=== PATIENT | female | born 2000 | race American Indian/Alaskan Native ===

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

== ENCOUNTER 2020-09-13 06:25 | Inpatient (IN) | payer SELFPAY ==
[2020-09-13] MEDS ORDERED: Sodium Chloride 0.9% 10 ML Syringe FLUSH PRN ×2 (06:51→10:22)
[2020-09-13] MEDS ORDERED: Oxytocin/Normal Saline 30 UNIT/500 ML BAG IV SCH ×2 (08:15→10:30)
[2020-09-13] MEDS: Lactated Ringers 1,000 ML IV SCH ×2 (09:17→11:57)
[2020-09-13] MEDS ORDERED: Tranexamic Acid 1,000 MG in Sodium Chloride 0.9% 100 ML IV PRN (10:22)
[2020-09-13] MEDS ORDERED: Zolpidem 5 MG Tab PO PRN (10:22)
[2020-09-13] MEDS ORDERED: Oxytocin 10 Units/1 ML SDV IM PRN (10:22)
[2020-09-13] MEDS ORDERED: Acetaminophen 325 MG Tab PO PRN ×2 (10:22)
[2020-09-13] MEDS ORDERED: Simethicone 80 MG Tab.Chew PO PRN (10:22)
[2020-09-13] MEDS ORDERED: Carboprost Tromethamine 250 MCG/1 ML Amp IM PRN (10:22)
[2020-09-13] MEDS ORDERED: Benzocaine/Menthol 20%-0.5% Spray 56 GM Canister TOP PRN (10:22)
[2020-09-13] MEDS ORDERED: Misoprostol 400 MCG (4 X 100 MCG TAB) RECTAL PRN (10:22)
[2020-09-13] MEDS ORDERED: Lactated Ringers 1,000 ML IV SCH (10:30)
[2020-09-13] MEDS ORDERED: fentaNYL 100 MCG/2 ML SDV ONE (11:37)
[2020-09-13] MEDS ORDERED: Sodium Bicarbonate 4.2% 2.5 MEQ/5 ML SDV ONE ×2 (11:38→16:17)
[2020-09-13] MEDS ORDERED: EPINEPHrine 1 MG/1 ML Amp ONE ×2 (11:38→16:17)
--- NOTE | 2020-09-13 12:01 | PCM.SN.2 ---
- Free Text/Narrative Note: Intrathecal. Sitting position, sterile prep and drape. 1% lidocaine w bicarb for skinwheal to L2 L3 interspace. Introducer, 24 ga pencan x 1. Pos CSF, neg heme, neg parasthesia. 0.1 ml pf 1:1000 epi, 20 mcg pf sufenta, 30 mcg pf fentanyl, 0.3 ml pf NS and 6 mg of 0.75 % marcaine injected after CSF aspiration. Pt to L lateral position. Procedure time 1135 to 1205
[2020-09-13] MEDS ORDERED: ePHEDrine 50 MG/ML SDV ONE (12:05)
[2020-09-13] MEDS ORDERED: ePHEDrine 50 MG/ML SDV IVPUSH ONE (12:07)
[2020-09-13] MEDS ORDERED: Ondansetron 4 MG/2 ML SDV IVPUSH ONE (13:00)
--- NOTE | 2020-09-13 15:09 | PCM.DEL ---
L & D Note - General Info Date of Service: 09/13/20 (1439) Mother's Due Date: 09/14/20 (39 6/7 weeks gestation) - Delivery Note Labor: Augmented by Oxytocin Delivery Outcome: Livebirth Delivery Method: Spontaneous Vaginal Delivery-Single Delivery Mode: Spontaneous Presentation: Vertex (Occiput Posterior) Nuchal Cord: None Anesthesia Type: Intrathecal Amniotic Fluid Description: Meconium Stained Episiotomy Type: None Laceration: None Placenta: Intact, Spontaneous Cord: 3 Vessels Estimated Blood Loss: 300 Resuscitation Needed: No : Suctioned, Bulb Syringe, Stimulated, Warmed, [place] Used Provider: Ismael Heller Score 1 min: 9 Score 5 min: 9 Second Stage Interventions: Reports: Second Nurse Assessed Progress of Descent, Second Nurse Reviewed Contraction Pattern, Second Nurse Reviewed Heart Tones, Encouragement Given, Pushing Effectively Delivery Comments (Free Text/Narrative):: , OP, Viable female over intact perineum. Cord 3 vessel not around neck. Placenta delivered by simple expression intact. Labia, vagina, and cervix inspected and intact. Mother and infant in good condition. Weight- 8 lbs 4 oz; Length- 20 inches; 's- 9 and 9. - General Info Date of Service: 09/13/20 - Review of Systems General: Reports: No Symptoms HEENT: Reports: No Symptoms Pulmonary: Reports: No Symptoms Cardiovascular: Reports: No Symptoms Gastrointestinal: Reports: No Symptoms Genitourinary: Reports: No Symptoms Musculoskeletal: Reports: No Symptoms Skin: Reports: No Symptoms Neurological: Reports: No Symptoms Psychiatric: Reports: No Symptoms - Patient Data Vitals - Most Recent: Last Vital Signs Temp 97.5 F 09/13/20 12:00 Pulse 66 09/13/20 13:45 Resp 16 09/13/20 12:45 BP 99/62 09/13/20 13:45 Pulse Ox 100 09/13/20 12:45 Weight - Most Recent: 186 lb Lab Results Last 24 Hours: Laboratory Results - last 24 hr 09/13/20 09/13/20 09/13/20 Range/Units 06:35 06:40 07:00 WBC 9.5 (5.0-10.0) 10^3/uL RBC 4.84 (4.2-5.4) 10^6/uL Hgb 11.8 L (12.0-16.0) g/dL Hct 37.0 (37.0-47.0) % MCV 76.4 L D (80-100) fL MCH 24.4 L (27.0-34.0) pg MCHC 31.9 L (33.0-35.0) g/dL Plt Count 249 D (150-450) 10^3/uL Neut % (Auto) 63.8 (42.2-75.2) % Lymph % (Auto) 27.7 (20.5-50.1) % [place] % (Auto) 7.4 (2-8) % Eos % (Auto) 0.8 L (1.0-3.0) % Baso % (Auto) 0.3 (0.0-1.0) % Urine Opiates Screen Negative (NEGATIVE) Ur Oxycodone Screen Negative (NEGATIVE) Urine Methadone Screen Negative (NEGATIVE) Ur Barbiturates Screen Negative (NEGATIVE) U Tricyclic Antidepress Negative (NEGATIVE) Ur Phencyclidine Scrn Negative (NEGATIVE) Ur Amphetamine Screen Negative (NEGATIVE) U Methamphetamines Scrn Negative (NEGATIVE) Urine MDMA Screen Negative (NEGATIVE) U Benzodiazepines Scrn Negative (NEGATIVE) Urine Cocaine Screen Negative (NEGATIVE) U Marijuana (THC) Screen Negative (NEGATIVE) SARS-CoV-2 RNA (AMELIE) Negative (NEGATIVE) Med Orders - Current: Current Medications Acetaminophen (Acetaminophen 325 Mg Tab) 650 mg PO Q4H PRN PRN Reason: Pain/Fever Acetaminophen (Acetaminophen 325 Mg Tab) 650 mg PO Q6H PRN PRN Reason: Pain/Fever Benzocaine/Menthol (Benzocaine/Menthol 20%-0.5% [place] 56 Gm Canister) 0 gm TOP Q4H PRN PRN Reason: Perineal comfort measures Carboprost Tromethamine (Carboprost Tromethamine 250 Mcg/1 Ml Amp) 250 mcg IM ASDIRECTED PRN PRN Reason: Excessive vaginal bleeding Docusate Sodium (Docusate Sodium 100 Mg Cap) 100 mg PO BID PRN PRN Reason: Constipation Oxytocin/Sodium Chloride (Pitocin In Ns 30 Unit/500 Ml) 30 unit in 500 mls @ 2 mls/hr IV TITRATE BON; Protocol Last Titration: 09/13/20 13:35 Dose: 14 munits/min, 14 mls/hr Documented by: Lactated Ringer's (Ringers, Lactated) 1,000 mls @ 125 mls/hr IV ASDIRECTED [facility] Last Admin: 09/13/20 11:57 Dose: 125 mls/hr Documented by: Lactated Ringer's (Ringers, Lactated) 1,000 mls @ 125 mls/hr IV ASDIRECTED BON Oxytocin/Sodium Chloride (Pitocin In Ns 30 Unit/500 Ml) 30 unit in 500 mls @ 2 mls/hr IV TITRATE BON; Protocol Tranexamic Acid 1,000 mg/ (Sodium Chloride) 110 mls @ 660 mls/hr IV ONETIME PRN PRN Reason: Bleeding Ibuprofen (Ibuprofen 800 Mg Tab) 800 mg PO Q8H PRN PRN Reason: Pain Misoprostol (Misoprostol 400 Mcg (4 X 100 Mcg Tab)) 800 mcg RECTAL ONETIME PRN PRN Reason: Hemorrhage Oxytocin (Oxytocin 10 Units/1 Ml Sdv) 10 unit IM ONETIME PRN PRN Reason: Bleeding Prenat Multivit/Strike On Machine Operator/Iron/Folic Ac ( Multivitamin With Calcium/Folic Acid/Iron Tab) 1 each PO DAILY [facility] Simethicone (Simethicone 80 Mg Tab.Chew) 80 mg PO Q4H PRN PRN Reason: Gas Sodium Chloride (Sodium Chloride 0.9% 10 Ml Syringe) 10 ml FLUSH ASDIRECTED PRN PRN Reason: Keep Vein Open Sodium Chloride (Sodium Chloride 0.9% 10 Ml Syringe) 10 ml FLUSH ASDIRECTED PRN PRN Reason: Keep Vein Open Zolpidem Tartrate (Zolpidem 5 Mg Tab) 5 mg PO BEDTIME PRN PRN Reason: Insomnia Discontinued Medications Ephedrine Sulfate (Ephedrine 50 Mg/Ml Sdv) Confirm Administered Dose 50 mg .ROUTE .STK-MED ONE Stop: 09/13/20 12:06 Last Admin: 09/13/20 12:08 Dose: Not Given Documented by: Ephedrine Sulfate (Ephedrine 50 Mg/Ml Sdv) 10 mg IVPUSH ONETIME ONE Stop: 09/13/20 12:08 Last Admin: 09/13/20 12:07 Dose: 10 mg Documented by: Epinephrine HCl (Epinephrine 1 Mg/1 Ml Amp) Confirm Administered Dose 1 mg .ROUTE .STK-MED ONE Stop: 09/13/20 11:39 Last Admin: 09/13/20 11:57 Dose: Not Given Documented by: Fentanyl (Fentanyl 100 Mcg/2 Ml Sdv) Confirm Administered Dose 100 mcg .ROUTE .STK-MED ONE Stop: 09/13/20 11:38 Last Admin: 09/13/20 11:57 Dose: Not Given Documented by: Ondansetron HCl (Ondansetron 4 Mg/2 Ml Sdv) 4 mg IVPUSH ONETIME ONE Stop: 09/13/20 13:01 Last Admin: 09/13/20 13:07 Dose: 4 mg Documented by: Sodium Bicarbonate (Sodium Bicarbonate 4.2% 2.5 Meq/5 Ml Sdv) Confirm Administered Dose 2.5 meq .ROUTE .STK-MED ONE Stop: 09/13/20 11:39 Last Admin: 09/13/20 11:58 Dose: Not Given Documented by: Sufentanil Citrate (Sufentanil 50 Mcg/1 Ml Amp) Confirm Administered Dose 50 mcg .ROUTE .STK-MED ONE Stop: 09/13/20 11:39 Last Admin: 09/13/20 11:58 Dose: Not Given Documented by: - Problem List Review Problem List Initiated/Reviewed/Updated: Yes - My Orders Last 24 Hours: My Active Orders 09/13/20 06:40 RPR (SYPHILIS SERO) W/ RFLX [REF] Stat 09/13/20 06:51 Peripheral IV Care [RC] 08,20 Sodium Chloride 0.9% [Saline Flush] 10 ml FLUSH ASDIRECTED PRN Peripheral IV Insertion Adult [OM.PC] Routine 09/13/20 08:15 Lactated Ringers [Ringers, Lactated] 1,000 ml IV ASDIRECTED Oxytocin/Normal Saline [Pitocin in NS 30 UNIT/500 ML] 30 unit in 500 ml IV TITRATE 09/13/20 10:22 Patient Status [ADT] Routine Notify Provider Vital Signs OB [RC] ASDIRECTED Up ad Carie [RC] PER UNIT ROUTINE Vaginal Exam [RC] PRN Vital Signs [RC] PER UNIT ROUTINE Acetaminophen [TylenoL] 650 mg PO Q4H PRN Acetaminophen [TylenoL] 650 mg PO Q6H PRN Benzocaine/Menthol [Dermoplast Pain Relief [place]] See Dose Instructions TOP Q4H PRN Carboprost Tromethamine [Hemabate DS] 250 mcg IM ASDIRECTED PRN Docusate Sodium [Colace] 100 mg PO BID PRN Ibuprofen [Motrin] 800 mg PO Q8H PRN Oxytocin [Pitocin] 10 unit IM ONETIME PRN Simethicone 80 mg PO Q4H PRN Sodium Chloride 0.9% [Saline Flush] 10 ml FLUSH ASDIRECTED PRN Tranexamic Acid [Cyklokapron] 1,000 mg Sodium Chloride 0.9% [Normal Saline] 100 ml IV ONETIME Zolpidem [Ambien] 5 mg PO BEDTIME PRN miSOPROStoL [Cytotec] 800 mcg RECTAL ONETIME PRN Assess Lochia [WOMSER] Per Unit Routine Assess Uterine Involution [WOMSER] Per Unit Routine Breast Pump [WOMSER] Per Unit Routine Ice Therapy [OM.PC] Per Unit Routine Perineal Care [OM.PC] Per Unit Routine Peripheral IV Insertion Adult [OM.PC] Urgent Saline Lock Insert [OM.PC] Urgent Sitz Bath [OM.PC] Per Unit Routine Resuscitation Status Routine 09/13/20 10:30 Lactated Ringers [Ringers, Lactated] 1,000 ml IV ASDIRECTED Oxytocin/Normal Saline [Pitocin in NS 30 UNIT/500 ML] 30 unit in 500 ml IV TITRATE 09/13/20 Lunch Clear Liquid Diet [DIET] Regular Diet [DIET] 09/13/20 Dinner Regular Diet [DIET] 09/14/20 05:11 CBC WITH AUTO DIFF [HEME] AM 09/14/20 09:00 Vit with Ca/FA/Iron [ Plus Iron] 1 each PO DAILY
[2020-09-13] MEDS ORDERED: fentaNYL 100 MCG/2 ML SDV ITHECAL ONE (16:17)
[2020-09-13] MEDS ORDERED: Sodium Chloride 0.9% 20 ML SDV ONE (16:17)
[2020-09-13] MEDS: Ibuprofen 800 MG Tab PO PRN (17:12)
[2020-09-13] MEDS: Docusate Sodium 100 MG Cap PO PRN (22:02)
[2020-09-14] MEDS: Ibuprofen 800 MG Tab PO PRN ×2 (01:45→09:38)
--- NOTE | 2020-09-14 04:00 | PCM.PNPP ---
- General Info Date of Service: 09/14/20 (PPD # 1 S/P ) Functional Status: Reports: Pain Controlled, Tolerating Diet, Ambulating, Urinating - Review of Systems General: Reports: No Symptoms HEENT: Reports: No Symptoms Pulmonary: Reports: No Symptoms Cardiovascular: Reports: No Symptoms Gastrointestinal: Reports: No Symptoms Genitourinary: Reports: No Symptoms Musculoskeletal: Reports: No Symptoms Skin: Reports: No Symptoms Neurological: Reports: No Symptoms Psychiatric: Reports: No Symptoms - General Info Date of Service: 09/14/20 (PPD # 1 S/P ) - Patient Data Vital Signs - Most Recent: Last Vital Signs Temp 98.2 F 09/13/20 20:00 Pulse 79 09/13/20 22:00 Resp 18 09/13/20 20:00 BP 95/44 L 09/13/20 22:00 Pulse Ox 99 09/13/20 20:00 Weight - Most Recent: 186 lb I&O - Last 24 Hours: Intake & Output 09/13/20 09/13/20 09/14/20 14:59 22:59 06:59 Output Total 500 Balance -500 Lab Results - Last 24 Hours: Laboratory Results - last 24 hr 09/13/20 09/13/20 09/13/20 Range/Units 06:35 06:40 07:00 WBC 9.5 (5.0-10.0) 10^3/uL RBC 4.84 (4.2-5.4) 10^6/uL Hgb 11.8 L (12.0-16.0) g/dL Hct 37.0 (37.0-47.0) % MCV 76.4 L D (80-100) fL MCH 24.4 L (27.0-34.0) pg MCHC 31.9 L (33.0-35.0) g/dL Plt Count 249 D (150-450) 10^3/uL Neut % (Auto) 63.8 (42.2-75.2) % Lymph % (Auto) 27.7 (20.5-50.1) % [place] % (Auto) 7.4 (2-8) % Eos % (Auto) 0.8 L (1.0-3.0) % Baso % (Auto) 0.3 (0.0-1.0) % Urine Opiates Screen Negative (NEGATIVE) Ur Oxycodone Screen Negative (NEGATIVE) Urine Methadone Screen Negative (NEGATIVE) Ur Barbiturates Screen Negative (NEGATIVE) U Tricyclic Antidepress Negative (NEGATIVE) Ur Phencyclidine Scrn Negative (NEGATIVE) Ur Amphetamine Screen Negative (NEGATIVE) U Methamphetamines Scrn Negative (NEGATIVE) Urine MDMA Screen Negative (NEGATIVE) U Benzodiazepines Scrn Negative (NEGATIVE) Urine Cocaine Screen Negative (NEGATIVE) U Marijuana (THC) Screen Negative (NEGATIVE) SARS-CoV-2 RNA (AMELIE) Negative (NEGATIVE) Med Orders - Current: Current Medications Acetaminophen (Acetaminophen 325 Mg Tab) 650 mg PO Q4H PRN PRN Reason: Pain/Fever Last Admin: 09/13/20 19:21 Dose: 650 mg Documented by: Acetaminophen (Acetaminophen 325 Mg Tab) 650 mg PO Q6H PRN PRN Reason: Pain/Fever Benzocaine/Menthol (Benzocaine/Menthol 20%-0.5% [place] 56 Gm Canister) 0 gm TOP Q4H PRN PRN Reason: Perineal comfort measures Last Admin: 09/13/20 17:13 Dose: 1 spray Documented by: Carboprost Tromethamine (Carboprost Tromethamine 250 Mcg/1 Ml Amp) 250 mcg IM ASDIRECTED PRN PRN Reason: Excessive vaginal bleeding Docusate Sodium (Docusate Sodium 100 Mg Cap) 100 mg PO BID PRN PRN Reason: Constipation Last Admin: 09/13/20 22:02 Dose: 100 mg Documented by: Ferrous Sulfate (Ferrous Sulfate 325 Mg Tab) 325 mg PO WITHBREAKFAST BON Oxytocin/Sodium Chloride (Pitocin In Ns 30 Unit/500 Ml) 30 unit in 500 mls @ 2 mls/hr IV TITRATE BON; Protocol Last Titration: 09/13/20 17:15 Dose: 0 munits/min, 0 mls/hr Documented by: Lactated Ringer's (Ringers, Lactated) 1,000 mls @ 125 mls/hr IV ASDIRECTED BON Last Infusion: 09/13/20 17:15 Dose: 0 mls/hr Documented by: Lactated Ringer's (Ringers, Lactated) 1,000 mls @ 125 mls/hr IV ASDIRECTED BON Oxytocin/Sodium Chloride (Pitocin In Ns 30 Unit/500 Ml) 30 unit in 500 mls @ 2 mls/hr IV TITRATE BON; Protocol Tranexamic Acid 1,000 mg/ (Sodium Chloride) 110 mls @ 660 mls/hr IV ONETIME PRN PRN Reason: Bleeding Ibuprofen (Ibuprofen 800 Mg Tab) 800 mg PO Q8H PRN PRN Reason: Pain Last Admin: 09/14/20 01:45 Dose: 800 mg Documented by: Misoprostol (Misoprostol 400 Mcg (4 X 100 Mcg Tab)) 800 mcg RECTAL ONETIME PRN PRN Reason: Hemorrhage Oxytocin (Oxytocin 10 Units/1 Ml Sdv) 10 unit IM ONETIME PRN PRN Reason: Bleeding Prenat Multivit/Senior Sustainability Consultant/Iron/Folic Ac ( Multivitamin With Calcium/Folic Acid/Iron Tab) 1 each PO DAILY BON Simethicone (Simethicone 80 Mg Tab.Chew) 80 mg PO Q4H PRN PRN Reason: Gas Sodium Chloride (Sodium Chloride 0.9% 10 Ml Syringe) 10 ml FLUSH ASDIRECTED PRN PRN Reason: Keep Vein Open Sodium Chloride (Sodium Chloride 0.9% 10 Ml Syringe) 10 ml FLUSH ASDIRECTED PRN PRN Reason: Keep Vein Open Zolpidem Tartrate (Zolpidem 5 Mg Tab) 5 mg PO BEDTIME PRN PRN Reason: Insomnia Discontinued Medications Ephedrine Sulfate (Ephedrine 50 Mg/Ml Sdv) Confirm Administered Dose 50 mg .ROUTE .STK-MED ONE Stop: 09/13/20 12:06 Last Admin: 09/13/20 12:08 Dose: Not Given Documented by: Ephedrine Sulfate (Ephedrine 50 Mg/Ml Sdv) 10 mg IVPUSH ONETIME ONE Stop: 09/13/20 12:08 Last Admin: 09/13/20 12:07 Dose: 10 mg Documented by: Epinephrine HCl (Epinephrine 1 Mg/1 Ml Amp) Confirm Administered Dose 1 mg .ROUTE .STK-MED ONE Stop: 09/13/20 11:39 Last Admin: 09/13/20 11:57 Dose: Not Given Documented by: Fentanyl (Fentanyl 100 Mcg/2 Ml Sdv) Confirm Administered Dose 100 mcg .ROUTE .STK-MED ONE Stop: 09/13/20 11:38 Last Admin: 09/13/20 11:57 Dose: Not Given Documented by: Ondansetron HCl (Ondansetron 4 Mg/2 Ml Sdv) 4 mg IVPUSH ONETIME ONE Stop: 09/13/20 13:01 Last Admin: 09/13/20 13:07 Dose: 4 mg Documented by: Sodium Bicarbonate (Sodium Bicarbonate 4.2% 2.5 Meq/5 Ml Sdv) Confirm Administered Dose 2.5 meq .ROUTE .STK-MED ONE Stop: 09/13/20 11:39 Last Admin: 09/13/20 11:58 Dose: Not Given Documented by: Sufentanil Citrate (Sufentanil 50 Mcg/1 Ml Amp) Confirm Administered Dose 50 mcg .ROUTE .STK-MED ONE Stop: 09/13/20 11:39 Last Admin: 09/13/20 11:58 Dose: Not Given Documented by: - Infant Interaction Disposition, : [place] in Room with Family Infant Interaction: Holding Feeding: Breastfed ; Nursed Well, Continues to Breastfeed Support Person: Mother - Recovery Exam Fundal Tone: Firm Fundal Level: 1 Fingerbreadths Below Umbilicus Fundal Placement: Midline Lochia Amount: Small Lochia Color: Rubra/Red Perineum Description: Intact, Minimal Bruising/Swelling Episiotomy/Laceration: None Bladder Status: Nonpalpable Urinary Elimination: Voided - Exam General: Alert, Oriented, Cooperative, No Acute Distress HEENT: Pupils Equal, Pupils Reactive, EOMI, Mucous Membr. Moist/[place] Neck: Supple Lungs: Clear to Auscultation, Normal Respiratory Effort Cardiovascular: Regular Rate, Regular Rhythm GI/Abdominal Exam: Normal Bowel Sounds, Soft, Non-Tender, No Distention Extremities: Normal Inspection, Normal Range of Motion, Non-Tender, No Pedal Edema Skin: Warm, Dry, Intact Neurological: No New Focal Deficit, Normal Gait, Normal Speech, Normal Tone Psy/Mental Status: Alert, Normal Affect, Normal Mood - Problem List Review Problem List Initiated/Reviewed/Updated: Yes - My Orders Last 24 Hours: My Active Orders 09/13/20 06:40 RPR (SYPHILIS SERO) W/ RFLX [REF] Stat 09/13/20 06:51 Peripheral IV Care [RC] 08,20 Sodium Chloride 0.9% [Saline Flush] 10 ml FLUSH ASDIRECTED PRN Peripheral IV Insertion Adult [OM.PC] Routine 09/13/20 08:15 Lactated Ringers [Ringers, Lactated] 1,000 ml IV ASDIRECTED Oxytocin/Normal Saline [Pitocin in NS 30 UNIT/500 ML] 30 unit in 500 ml IV TITRATE 09/13/20 10:22 Patient Status [ADT] Routine Notify Provider Vital Signs OB [RC] ASDIRECTED Up ad Carie [RC] PER UNIT ROUTINE Vital Signs [RC] 08,20 Acetaminophen [TylenoL] 650 mg PO Q4H PRN Acetaminophen [TylenoL] 650 mg PO Q6H PRN Benzocaine/Menthol [Dermoplast Pain Relief [place]] See Dose Instructions TOP Q4H PRN Carboprost Tromethamine [Hemabate DS] 250 mcg IM ASDIRECTED PRN Docusate Sodium [Colace] 100 mg PO BID PRN Ibuprofen [Motrin] 800 mg PO Q8H PRN Oxytocin [Pitocin] 10 unit IM ONETIME PRN Simethicone 80 mg PO Q4H PRN Sodium Chloride 0.9% [Saline Flush] 10 ml FLUSH ASDIRECTED PRN Tranexamic Acid [Cyklokapron] 1,000 mg Sodium Chloride 0.9% [Normal Saline] 100 ml IV ONETIME Zolpidem [Ambien] 5 mg PO BEDTIME PRN miSOPROStoL [Cytotec] 800 mcg RECTAL ONETIME PRN Assess Lochia [WOMSER] Per Unit Routine Assess Uterine Involution [WOMSER] Per Unit Routine Breast Pump [WOMSER] Per Unit Routine Ice Therapy [OM.PC] Per Unit Routine Perineal Care [OM.PC] Per Unit Routine Peripheral IV Insertion Adult [OM.PC] Urgent Saline Lock Insert [OM.PC] Urgent Sitz Bath [OM.PC] Per Unit Routine Resuscitation Status Routine 09/13/20 10:30 Lactated Ringers [Ringers, Lactated] 1,000 ml IV ASDIRECTED Oxytocin/Normal Saline [Pitocin in NS 30 UNIT/500 ML] 30 unit in 500 ml IV TITRATE 09/13/20 Lunch Clear Liquid Diet [DIET] 09/13/20 15:36 ROSA Hose Substitution [Sequential Compression Device] [OM.PC] Routine 09/13/20 Dinner Regular Diet [DIET] 09/14/20 05:11 CBC WITH AUTO DIFF [HEME] AM 09/14/20 08:00 Ferrous Sulfate 325 mg PO WITHBREAKFAST 09/14/20 09:00 Vit with Ca/FA/Iron [ Plus Iron] 1 each PO DAILY - Assessment Assessment:: PPD # 1 S/P Doing well - Plan Plan:: Continue present care. Increase ambulation Will consider discharge later today or tomorrow. Dr. Honeycutt to see patient and today. All questions answered.
--- NOTE | 2020-09-14 04:02 | HP ---
CHIEF COMPLAINT: "My water broke." HISTORY OF PRESENT ILLNESS: Ms. Fleming is a 20-year-old 4, para 1-1- 1-1 female. Last menstrual period unsure. EDC 09/14/2020. EGA 39-6/7 weeks' gestation, which is consistent with a 35-week ultrasound. She had late care and anemia of . She sees Dr. Jace Honeycutt. She denies any nausea, vomiting, or diarrhea. No fever or chills. No hematochezia, hematemesis, hematuria. No dysuria, frequency, or urgency with urination. No leg pain, leg edema, or back pain. She has no vaginal bleeding and she had no contractions before her water broke, but has since started having some contractions. The fluid that she has is meconium stained. PAST MEDICAL HISTORY: She had history of gestational diabetes with her 1st . She denies any asthma, cancer, diabetes, hypertension, heart disease, seizure disorder, thyroid disorder, thromboembolic disease, breast lesions, blood transfusions, or lung problems. FAMILY HISTORY: No family history of cancer, hypertension, heart disease, seizure disorder, or thyroid disease. SOCIAL HISTORY: She denies any tobacco use, alcohol use, or illicit drug use. She did have a positive drug screen with marijuana, but her drug screen today is negative. She lives in [place], [place]. The father of the baby is in [facility] and she has a 2-year-old at home her mother is taking care with her. GYNECOLOGICAL HISTORY: No history of STIs or ever having a Pap smear. OBSTETRICAL HISTORY: 06/20/2018, delivery of an 8-pound 14-ounce male infant via normal spontaneous vaginal delivery at 30-3/7 weeks' gestation. She did have gestational diabetes, diet controlled with this . 05/09/2019, delivery of a 2-pound 13-ounce male infant, stillbirth at 33 weeks' gestation. 10/22/2019, spontaneous VB. PAST SURGICAL HISTORY: None. ALLERGIES: No known drug allergies. MEDICATION: vitamins. REVIEW OF SYSTEMS: All pertinent positive and negative review of systems per HPI. All others reviewed are negative. Ten-point review of systems discussed with the patient. She has no other issues other than what is in the HPI. LABORATORY DATA: Blood type A positive. Antibody screen negative. Hemoglobin 11.8, hematocrit 37.0, platelet count 249,000. Rubella immune. RPR nonreactive. Hepatitis B surface antigen negative. Hepatitis C antibody negative. HIV negative. Urine drug screen today negative. Group B strep vaginal culture negative. OBJECTIVE: General: Well-developed, well-nourished female in no acute distress. Vital Signs: Stable, afebrile. HEENT: Unremarkable. Neck: Supple without adenopathy or thyromegaly. Lungs: Clear to auscultation. No wheezing, rhonchi, or rales noted. Cardiovascular: Regular rate and rhythm without murmurs. Abdomen: Soft and nontender. Bowel sounds good. No rigidity, rebound tenderness, peritoneal signs noted. Fundal height 39 cm. heart tones in the 130s to 140s, reactive strip, category 1 strip. Contractions at first were irregular. Genitourinary: Cervix 3 cm dilated, 60% effaced, posterior -2. Meconium- stained fluid grossly ruptured. Extremities: No edema, erythema, or tenderness noted. ASSESSMENT: 1. 39-6/7 week intrauterine . 2. Premature rupture of membranes. 3. Late care. 4. History of anemia. 5. History of positive marijuana/tetrahydrocannabinol in her urine with previous drug screen negative today. 6. Meconium-stained fluid. PLAN: 1. Admit to Labor and Delivery. 2. Pitocin augmentation. 3. All questions answered. 4. The risks, benefits, complications, and side effects of Pitocin augmentation were discussed with the patient including tachy-systole and increased risk for section. 5. The patient was given options for pain control. She will decide upon those once she gets more uncomfortable. 6. Syphilis reported. [facility] /[id number]
[2020-09-14] MEDS ORDERED: Ferrous Sulfate 325 MG Tab PO SCH (08:00)
[2020-09-14] MEDS ORDERED: Prenatal Multivitamin with Calcium/Folic Acid/Iron Tab PO SCH (09:00)
[2020-09-14] MEDS: Docusate Sodium 100 MG Cap PO PRN (09:39)
--- NOTE | 2020-09-14 13:25 | DISCH ---
ADMIT DIAGNOSES: 1. Intrauterine at 39-6/7 weeks by 35-2/7-week ultrasound. 2. Spontaneous rupture of membranes/prelabor rupture of membranes. 3. Late care. 4. Maternal anemia history. 5. History of positive THC on drug screen on 08/11/2020 at [facility] and negative upon admission. 6. G4, P1-1-1-1. 7. History of syphilis positive test in the past, that was false positive, negative during this . DISCHARGE DIAGNOSES: 1. Intrauterine at 39-6/7 weeks by 35-2/7-week ultrasound - delivered. 2. Spontaneous rupture of membranes/prelabor rupture of membranes. 3. Late care. 4. Maternal anemia history. 5. History of positive THC on drug screen on 08/11/2020 at [facility] and negative upon admission. 6. G4, P1-1-1-1. 7. History of syphilis positive test in the past, that was false positive, negative during this . 8. Anemia of acute blood loss, hemoglobin dropping from 11.8 to 9.2 pre to post delivery. PROCEDURE PERFORMED: Please see progress notes and delivery notes by Dr. Heller. HISTORY OF PRESENT ILLNESS: Please see H and P by Dr. Heller. SUMMARY OF HOSPITAL COURSE: The patient was admitted on the above date with the above diagnoses, labor augmented by oxytocin, went on to have a spontaneous vaginal delivery yielding a female with a weight of 3755 g (8 pounds 4 ounces with score 9 and 9). Please see delivery note for further details. DISCHARGE EVALUATION: The patient is tolerating p.o., is ambulating, urinating, passing flatus, requesting discharge after 24 hours after delivery. OBJECTIVE: Vital Signs: Temp 98.2, heart rate 79, blood pressure 95/44, respiratory rate 18. Lungs: Clear to auscultation bilaterally. Heart: S1, S2. Regular rate and rhythm. Abdomen: Firm uterus, -1 below umbilicus. Extremities: No peripheral edema. No calf pain. DISCHARGE LABS: Reveal white cell count 10.5, hemoglobin 9.2, and platelets 188. CONDITION ON DISCHARGE COMPARED TO CONDITION ON ADMISSION: Improved. DISCHARGE INSTRUCTIONS: 1. Diet: As tolerated. 2. Activity: No lifting more than 20 pounds. No sit-ups or straining, and pelvic rest for the next 6 weeks with immediate return of fertility fully discussed with the patient. 3. Reasons to return or go to the emergency room were discussed with the patient in detail including, but not limited to temperature greater than 100.4, foul-smelling discharge, red or tender breasts, or increased vaginal bleeding. DISCHARGE MEDICATIONS: [id number] Tylenol or ibuprofen for pain, iron sulfate 325 b.i.d. x6 weeks, patient has this, as well as vitamins daily for 6 weeks. FOLLOW UP: For 6-week . Did discus the importance of followup and ramifications of not doing so as well as recommendation to follow up with her baby on 09/16/2020. An appointment will be made in the clinic for this in the morning. The patient understands and agrees with the above treatment plan. Please see discharge paperwork for further details. [facility] /[id number]
== END 2020-09-14 16:18 | disposition home or self-care (01) | DRG 806 ==
LOC: DL.OBCHECK 06:25 → DL.OB 10:22 → OBSVTOIN 14:39
PROVIDERS: ADMIT Obstetrics & Gynecology; ATTEND Obstetrics & Gynecology
PROC: 10E0XZZ Delivery of Products of Conception, External Approach (ICD-10-PCS; principal; 2020-09-13)
PROC: 3E0R3BZ Introduction of Anesthetic Agent into Spinal Canal, Percutaneous Approach (ICD-10-PCS; 2020-09-13)
DX: O99.02 Anemia complicating childbirth (principal); D62 Acute posthemorrhagic anemia; Z37.0 Single live birth; Z3A.39 39 weeks gestation of pregnancy; O77.0 Labor and delivery complicated by meconium in amniotic fluid; Z20.822 Contact with and (suspected) exposure to COVID-19
CPT/HCPCS: 36415; 59409; 80305-QW; 85025; 86592; A9270-GY; J0171; J2405; J2590; J3010; J7120; U0002

== ENCOUNTER 2022-06-21 21:14 | Emergency (ER) | payer MEDICAID | END 2022-06-21 21:15 | LOC: DL.ED 21:14 | DX: Z53.21 Procedure and treatment not carried out due to patient leaving prior to being seen by health care provider (principal) ==

== ENCOUNTER 2025-01-06 15:07 | Observation (INO) | payer SELFPAY ==
[2025-01-06] MEDS ORDERED: Sodium Chloride 0.9% 10 ML Syringe FLUSH PRN ×2 (15:35→21:56)
[2025-01-06 15:45] LABS: BASOPHILS PERCENT AUTO 0.3 % (0.0-1.0); EOSINOPHILS PERCENT AUTO 0.0 % (1.0-3.0); LYMPHOCYTES PERCENT AUTO 7.1 % (20.5-50.1); MONOCYTES PERCENT AUTO 0.3 % (2-8); NEUTROPHILS PERCENT AUTO 92.3 % (42.2-75.2); PLATELET COUNT,PLT 246 10^3/uL (150-450); RED BLOOD CELL COUNT 3.66 10^6/uL (4.2-5.4); WHITE BLOOD CELL COUNT,WBC 3.2 10^3/uL (5.0-10.0)
[2025-01-06] MEDS: Ondansetron 4 MG/2 ML SDV IVPUSH ONE (15:45)
[2025-01-06] MEDS: Lactated Ringers 1,000 ML IV SCH ×2 (16:04→22:14)
[2025-01-06 16:07] LABS: ALANINE AMINOTRANSFERASE,ALT 15 U/L (14-59); ASPARTATE AMNIOTRANSFERASE,AST 18 U/L (15-37); BILIRUBIN TOTAL 1.1 mg/dL (0.2-1.0); BLOOD UREA NITROGEN,BUN 8 mg/dL (7-18); CARBON DIOXIDE,CO2 18 mmol/L (21-32); CHLORIDE,CL 103 mmol/L (98-107); CREATININE 0.91 mg/dL (0.55-1.02); GLUCOSE RANDOM 83 mg/dL (70-99); POTASSIUM,K 2.7 mmol/L (3.5-5.1); PROTEIN TOTAL,TP 7.5 g/dL (6.4-8.2); SODIUM,NA 137 mmol/L (136-145)
[2025-01-06 16:09] LABS: A/G RATIO 0.53; ESTIMATED GFR 90 mL/min (>=60)
[2025-01-06] MEDS: NS with KCl 40mEq 1,000 ML IV SCH ×2 (16:25→22:13)
[2025-01-06 17:38] LABS: APPEARANCE,URINE CLOUDY (CLEAR); GLUCOSE,URINE NEGATIVE (NEGATIVE); OCCULT BLOOD,URINE TRACE-INTACT (NEGATIVE)
[2025-01-06 17:42] LABS: AMPHETAMINES,URINE POSITIVE (NEGATIVE); BARBITURATES,URINE NEGATIVE (NEGATIVE); MDMA (ECSTASY), URINE NEGATIVE (NEGATIVE); METHAMPHETAMINES,URINE POSITIVE (NEGATIVE); OPIATES,URINE NEGATIVE (NEGATIVE); OXYCODONE,URINE NEGATIVE (NEGATIVE); PHENCYCLIDINE,URINE NEGATIVE (NEGATIVE); TCA,URINE NEGATIVE (NEGATIVE)
[2025-01-06 17:48] LABS: EPITHELIAL CELLS,URINE FEW /HPF (NOT SEEN)
[2025-01-06 17:49] LABS: FINE GRANULAR CASTS,URINE FEW /LPF (NOT SEEN)
[2025-01-06] MEDS ORDERED: Promethazine 25 MG/ML SDV IM PRN ×2 (18:41→21:55)
[2025-01-06] MEDS: Magnesium Sulfate 2 GM/50 mL 2 GM in Premix Bag 1 BAG IV ONE (18:43)
[2025-01-06] MEDS ORDERED: Ondansetron 4 MG/2 ML SDV IVPUSH PRN ×2 (18:45→21:55)
[2025-01-06] MEDS ORDERED: Lactated Ringers 1,000 ML IV SCH ×2 (22:00)
[2025-01-07 06:24] LABS: ALANINE AMINOTRANSFERASE,ALT 14 U/L (14-59); ASPARTATE AMNIOTRANSFERASE,AST 19 U/L (15-37); BILIRUBIN TOTAL 0.5 mg/dL (0.2-1.0); BLOOD UREA NITROGEN,BUN 7 mg/dL (7-18); CARBON DIOXIDE,CO2 22 mmol/L (21-32); CHLORIDE,CL 108 mmol/L (98-107); CREATININE 0.65 mg/dL (0.55-1.02); GLUCOSE RANDOM 90 mg/dL (70-99); POTASSIUM,K 4.3 mmol/L (3.5-5.1); PROTEIN TOTAL,TP 5.8 g/dL (6.4-8.2); SODIUM,NA 139 mmol/L (136-145)
[2025-01-07 06:28] LABS: A/G RATIO 0.49; ESTIMATED GFR 126 mL/min (>=60)
[2025-01-08 11:43] LABS: C.TRACHOMATIS BY TMA Negative (Negative); N.GONORRHOEAE BY TMA Negative (Negative)
== END 2025-01-07 12:20 | disposition home or self-care (01) ==
LOC: DL.ED 15:07 → DL.OB 18:41
PROVIDERS: ADMIT Family Medicine; ATTEND Family Medicine
DX: O36.8330 Maternal care for abnormalities of the fetal heart rate or rhythm, third trimester, not applicable or unspecified (principal); Z3A.31 31 weeks gestation of pregnancy
CPT/HCPCS: 36415; 76700; 76805; 80053; 80305; 81001; 83690; 83735; 84702; 85025; 86592; 86762; 86850; 86900; 86901; 87081; 87086; 87088; 87186; 87210; 87389; 87491; 87591; 99284; A9270; J2405; J3475; J3480; J7120

== ENCOUNTER 2025-02-25 07:54 | Inpatient (IN) | payer MEDICAID ==
[2025-02-25] MEDS ORDERED: Sodium Chloride 0.9% 10 ML Syringe FLUSH PRN ×2 (08:03→23:51)
[2025-02-25] MEDS ORDERED: Misoprostol 25 MCG (1/4 of 100 MCG) Tab VAG PRN (08:03)
[2025-02-25] MEDS ORDERED: Carboprost Tromethamine 250 MCG/1 ML Amp IM PRN (08:03)
[2025-02-25] MEDS ORDERED: Oxytocin/Lactated Ringers 30 UNIT/500 ML BAG IV SCH (08:15)
[2025-02-25] MEDS: Lactated Ringers 1,000 ML IV ONE (09:00)
[2025-02-25 09:04] LABS: PLATELET COUNT,PLT 219.0 10^3/uL (150-450); RED BLOOD CELL COUNT 4.12 10^6/uL (4.2-5.4); WHITE BLOOD CELL COUNT,WBC 6.6 10^3/uL (5.0-10.0)
[2025-02-25] MEDS: Misoprostol 50 MCG (1/2 of 100 MCG) Tab VAG SCH (09:15)
[2025-02-25 09:35] LABS: AMPHETAMINES,URINE NEGATIVE (NEGATIVE); BARBITURATES,URINE NEGATIVE (NEGATIVE); MDMA (ECSTASY), URINE NEGATIVE (NEGATIVE); METHAMPHETAMINES,URINE NEGATIVE (NEGATIVE); OPIATES,URINE NEGATIVE (NEGATIVE); OXYCODONE,URINE NEGATIVE (NEGATIVE); PHENCYCLIDINE,URINE NEGATIVE (NEGATIVE); TCA,URINE NEGATIVE (NEGATIVE)
[2025-02-25] MEDS: Misoprostol 25 MCG (1/4 of 100 MCG) Tab PO PRN (13:15)
[2025-02-25] MEDS: Lactated Ringers 1,000 ML IV SCH (19:07)
[2025-02-25] MEDS: Oxytocin/Normal Saline 30 UNIT/500 ML BAG IV SCH (20:31)
[2025-02-25] MEDS: Ondansetron 4 MG/2 ML SDV IVPUSH PRN (21:50)
[2025-02-25] MEDS ORDERED: fentaNYL 100 MCG/2 ML SDV ONE (22:07)
[2025-02-25] MEDS ORDERED: fentaNYL 100 MCG/2 ML SDV EPIDUR ONE (22:07)
[2025-02-25] MEDS ORDERED: ePHEDrine 50 MG/ML SDV IVPUSH PRN (22:16)
[2025-02-25] MEDS ORDERED: Ropivacaine 200 MG in Premix Bag 1 BAG EPIDUR SCH (22:30)
[2025-02-25] MEDS ORDERED: Oxytocin 10 Units/1 ML SDV IM PRN (23:51)
[2025-02-26] MEDS: Benzocaine/Menthol 20%-0.5% Spray 78 GM Cannister TOP PRN (00:28)
[2025-02-26] MEDS: Witch Hazel Medicated Pads 100/Jar TOP PRN (00:29)
[2025-02-26] MEDS: Prenatal Multivitamin with Calcium/Folic Acid/Iron Tab PO SCH (07:50)
[2025-02-26 08:45] LABS: PLATELET COUNT,PLT 197.0 10^3/uL (150-450); RED BLOOD CELL COUNT 4.01 10^6/uL (4.2-5.4); WHITE BLOOD CELL COUNT,WBC 13.2 10^3/uL (5.0-10.0)
== END 2025-02-27 14:25 | disposition home or self-care (01) | DRG 806 ==
LOC: DL.OB 08:06 → OBSVTOIN 23:31
PROVIDERS: ADMIT Family Medicine; ATTEND Family Medicine
PROC: 10E0XZZ Delivery of Products of Conception, External Approach (ICD-10-PCS; principal; 2025-02-25)
PROC: 3E0DXGC Introduction of Other Therapeutic Substance into Mouth and Pharynx, External Approach (ICD-10-PCS; 2025-02-25)
PROC: 10907ZC Drainage of Amniotic Fluid, Therapeutic from Products of Conception, Via Natural or Artificial Opening (ICD-10-PCS; 2025-02-25)
PROC: 4A1HXCZ Monitoring of Products of Conception, Cardiac Rate, External Approach (ICD-10-PCS; 2025-02-25)
PROC: 10H07YZ Insertion of Other Device into Products of Conception, Via Natural or Artificial Opening (ICD-10-PCS; 2025-02-25)
PROC: 3E0R3BZ Introduction of Anesthetic Agent into Spinal Canal, Percutaneous Approach (ICD-10-PCS; 2025-02-25)
PROC: 00HU33Z Insertion of Infusion Device into Spinal Canal, Percutaneous Approach (ICD-10-PCS; 2025-02-25)
DX: O99.02 Anemia complicating childbirth (principal); O98.42 Viral hepatitis complicating childbirth; Z37.0 Single live birth; Z3A.38 38 weeks gestation of pregnancy; O64.0XX0 Obstructed labor due to incomplete rotation of fetal head, not applicable or unspecified; B18.2 Chronic viral hepatitis C
CPT/HCPCS: 36415; 51702; 59025; 59409; 80305-QW; 85027; A9270-GY; J2405; J2590; J3010; J7120